=== PATIENT | female | born 1970 | race Caucasian/White ===

== ENCOUNTER 2022-04-19 09:52 | Emergency (ER) | payer BC ==
[2022-04-19 10:09] VITALS: O2SAT 97
[2022-04-19] MEDS ORDERED: BACTRIM DS TABLET PO STA (10:36)
--- NOTE | 2022-04-19 10:47 | ERPHSYRPT ---
- History of Present Illness Time Seen by Provider: 04/19/22 10:17 Source: patient Exam Limitations: no limitations Patient Subjective Stated Complaint: pt here for pain to right foot, she states on sat. she tripped over a stump and struck her right foot on another stump. Triage Nursing Assessment: pt alert, walked in with a limp, resp easy, face mask in place, skin w/d/p, has swelling, bruising and redness to right great toe, with part of toenail missing, and co pain to top of foot Physician History: 51 years old healthy female presented in the ER after she tripped on wet surface, hit the stumps on right big toe and distal foot 2 days ago. Her toenail is loose and yesterday's noticed some pus drainage. Diffuse swelling and erythema of the toe and pain with ambulation. Up-to-date with tetanus. Method of Injury: fell Occurred: days ago (2) Quality: sharpness Severity of Pain-Max: moderate Severity of Pain-Current: moderate Lower Extremities Pain: foot: right, 1st toe: right Modifying Factors: Improves With: immobilization. Worsens With: movement Associated Symptoms: none Allergies/Adverse Reactions: No Known Drug Allergies Allergy (Unverified 04/19/22 10:02) Hx Tetanus, Diphtheria Vaccination/Date Given: No Hx Influenza Vaccination/Date Given: No Hx Pneumococcal Vaccination/Date Given: No Immunizations Up to Date: Yes Travel Risk - International Travel Have you traveled outside of the country in past 3 weeks: No - Coronavirus Screening Are you exhibiting any of the following symptoms?: No Close contact with a COVID-19 positive Pt in past 14-21 Days: No - Vaccine Status Have you recieved a Covid-19 vaccination: Yes Voice Engineer: Unknown - Vaccination Dates Date of 2cond Vaccination (if applicable): 2020 Dates if Unknown: ? - Review of Systems Constitutional: No Symptoms Eyes: No Symptoms Respiratory: No Symptoms Cardiac: No Symptoms Abdominal/Gastrointestinal: No Symptoms Genitourinary Symptoms: No Symptoms Musculoskeletal: Injury Skin: Skin Lesions Neurological: No Symptoms Hematologic/Lymphatic: No Symptoms Immunological/Allergic: No Symptoms - Past Medical History Pertinent Past Medical History: No - Past Surgical History Past Surgical History: No - Social History Smoking Status: Never smoker Exposure to second hand smoke: No Drug Use: none - Nursing Vital Signs Nursing Vital Signs: Initial Vital Signs Temperature 96.8 F 09/05/22 10:04 Pulse Rate 93 H 04/19/22 10:04 Respiratory Rate 18 04/19/22 10:04 Blood Pressure 122/76 04/19/22 10:04 O2 Sat by Pulse Oximetry 97 04/19/22 10:04 Pain Scale Pain Intensity 6 - Physical Exam General Appearance: no apparent distress, alert Eyes, Ears, Nose, Throat Exam: normal ENT inspection Neck Exam: normal inspection, supple, full range of motion Cardiovascular/Respiratory Exam: normal breath sounds, regular rate/rhythm Back Exam: normal inspection, normal range of motion Foot Exam: right foot: bone tenderness (Big toe and first metatarsal tarsal distally), infection, limited range of motion (Big toe), nail injury (Big toenail), pain, soft tissue tenderness (Diffuse erythema of big toe), swelling, left foot: non-tender, normal inspection, normal range of motion, no evidence of injury Neuro/Tendon Exam: normal sensation, normal motor functions Mental Status Exam: alert, oriented x 3, cooperative Skin Exam: normal color SpO2 Interpretation: normal SpO2: 97 O2 Delivery: Room Air Ordered Tests: Active Orders 24 hr Category Date Time Status FOOT (MINIMUM 3 VIEWS) Stat Exams 04/19/22 10:14 Taken Medication Summary Discontinued Medications Generic Name Dose Route Start Last Admin Trade Name Liana PRN Reason Stop Dose Admin Trimethoprim/Sulfamethoxazole 1 tab 04/19/22 10:36 Smz/Tmp Ds Tablet 1 Tablet PO 04/19/22 10:37 STAT STA - Progress Progress: unchanged Progress Note: 04/19/22 10:46 She is offered pain medication which she refused. X-rays reviewed by me did not reveal any obvious fracture dislocation, official report of pelvic. Started on Bactrim and ibuprofen. Outpatient podiatry follow-up recommended. Counseled pt/family regarding: diagnosis, need for follow-up, rad results - Departure Departure Disposition: Home Clinical Impression: Toe infection, Foot injury Condition: Stable Critical Care Time: No Referrals: MAYA CHRISTIAN MD [Primary Care Provider] - Follow Up with PCP/3 days TANA HULL DPM [ACTIVE STAFF] - Follow up/PCP as directed (Tomorrow for reevaluation) Instructions: Toe Injury (DC) Additional Instructions: Take Tylenol/ibuprofen as needed for pain. Keep it elevated, intermittent ice application. Follow-up with podiatry and primary care for reevaluation. Return to ER for increasing pain swelling redness, fever chills etc. Prescriptions: Ibuprofen 600 mg PO Q6HPRN PRN 10 Days #20 tablet PRN Reason: Pain Smz/Tmp Ds Tablet [Bactrim Ds Tablet] 1 udtab PO BID #14 tablet
[2022-04-19] MEDS ORDERED: BACTRIM DS TABLET PO ONE (10:51)
[2022-04-19 11:12] VITALS: BP 107/80; PULSE 70
--- NOTE | 2022-04-19 18:38 | XRAY ---
Indication: Pain following fall 2 days ago. Comparison: None 3 nonweightbearing views right foot demonstrates tiny plantar heel spur. No other bony, articular, or soft tissue abnormalities.
== END 2022-04-19 11:11 | disposition home or self-care (01) ==
LOC: ED 09:52
DX: L08.9 Local infection of the skin and subcutaneous tissue, unspecified (principal); S99.921A Unspecified injury of right foot, initial encounter; W22.8XXA Striking against or struck by other objects, initial encounter; M79.671 Pain in right foot
CPT/HCPCS: 73630; 99282; A9270-GY

== ENCOUNTER 2025-04-28 05:57 | Emergency (ER) | payer BC ==
[2025-04-28 06:15] VITALS: TEMP 97.7
[2025-04-28] MEDS ORDERED: NORCO 5/325 MG ONE (06:22)
[2025-04-28] MEDS ORDERED: Cyclobenzaprine 10 MG ONE (06:22)
[2025-04-28] MEDS: Cyclobenzaprine 10 MG PO ONE (06:23)
[2025-04-28] MEDS: NORCO 5/325 MG PO ONE (06:24)
--- NOTE | 2025-04-28 06:24 | ERPHSYRPT ---
- History of Present Illness Time Seen by Provider: 04/28/25 06:17 Source: patient Exam Limitations: no limitations Patient Subjective Stated Complaint: pt reports bilateral upper leg pain beginning Tuesday, pt denies injury but states after she bent over the pain started. pt reports she used some muscle cream and a pain pill and the pain improved. states tuesday morning she woke up and went about her day per normal until the afternoon when the pain started again. reports she tried to go to bed but has tossed and turned all night and can no longer tolerate the pain. Triage Nursing Assessment: pt is aox3, crying intermittently upon exam, afe brile, resps easy and non labored, cap refill < 3 seconds, radial pulses strong and equal, pt skin pink warm dry. no obvious injury or deformity noted. no edema appreciated, pt ROM and sensation intact. pt is ambulatory with no difficulty. Physician History: 54-year-old female presents to the emergency room with bilateral buttocks pain that radiates to her bilateral thighs patient reports the pain started when she bent over and was squatting denies any popping sensation denies any trauma or falls patient is able to ambulate patient reports she has been using Aspercreme rub for pain relief as well as ibuprofen denies any bowel or bladder incontinence Timing/Duration: yesterday Method of Injury: bending Back Pain Location: paraspinous muscles Back Pain Radiation: buttocks, upper legs Severity of Pain-Max: mild Severity of Pain-Current: mild Associated Symptoms: No urinary incontinence, No loss of bowel control, No constipation, No nausea, No vomiting Allergies/Adverse Reactions: No Known Drug Allergies Allergy (Verified 04/28/25 06:14) Home Medications: Amoxicillin 500 mg PO BID 04/28/25 [History] Benzonatate 200 mg PO TIDPRN 04/28/25 [History] Cetirizine HCl [All Day Allergy Relief] 10 mg PO DAILY 04/28/25 [History] Prednisone 20 mg [Deltasone 20 mg] 20 mg PO DAILY 04/28/25 [History] Hx Tetanus, Diphtheria Vaccination/Date Given: No Hx Influenza Vaccination/Date Given: No Hx Pneumococcal Vaccination/Date Given: No Immunizations Up to Date: No Travel Risk - International Travel Have you traveled outside of the country in past 3 weeks: No - Emerging Infectious Disease Are you exhibiting symptoms associated with any current EIDs: No - Review of Systems Constitutional: No Fever, No Chills Eyes: No Symptoms Ears, Nose, & Throat: No Symptoms Respiratory: No Cough, No Dyspnea Cardiac: No Chest Pain, No Edema, No Syncope Abdominal/Gastrointestinal: No Abdominal Pain, No Nausea, No Vomiting, No Diarrhea Genitourinary Symptoms: No Dysuria Musculoskeletal: Other (leg pain), No Back Pain, No Neck Pain Skin: No Rash Neurological: No Dizziness, No Focal Weakness, No Sensory Changes Psychological: No Symptoms Endocrine: No Symptoms All Other Systems: Reviewed and Negative - Past Medical History Pertinent Past Medical History: No - Past Surgical History Past Surgical History: No - Social History Smoking Status: Never smoker Exposure to second hand smoke: No Drug Use: none - Social Determinants of Health Will the patient participate in the screening: Yes Do you worry about a steady place to live?: No Do you have any problems with any of the following?: No known problems In the past 12 months,have you had to go without utilities?: No Transportation Issues: No Has anyone in your support network made you feel unsafe?: No Have you or anyone in your house had to go w/o enough food: No - Nursing Vital Signs Nursing Vital Signs: Initial Vital Signs Temperature 97.7 F 04/28/25 06:03 Pulse Rate 96 H 04/28/25 06:03 Respiratory Rate 20 04/28/25 06:03 Blood Pressure 129/106 04/28/25 06:03 O2 Sat by Pulse Oximetry 99 04/28/25 06:03 Pain Scale Pain Intensity 10 - Physical Exam General Appearance: no apparent distress, alert Eye Exam: PERRL/EOMI, eyes nml inspection Neck Exam: normal inspection, non-tender, supple, full range of motion, No meningismus, No midline tenderness Respiratory Exam: normal breath sounds, lungs clear, No respiratory distress Cardiovascular Exam: regular rate/rhythm, normal heart sounds Gastrointestinal Exam: soft, No tenderness, No mass Extremity Exam: normal inspection, normal range of motion, other (muscle spasms), No calf tenderness, No pedal edema Neurologic Exam: alert, oriented x 3, cooperative, platemaker II-XII nml as tested, normal mood/affect, nml station & gait, sensation nml, No motor deficits Skin Exam: normal color, warm, dry, No rash SpO2: 99 Ordered Tests: Medication Summary Discontinued Medications Generic Name Dose Route Start Last Admin Trade Name Liana PRN Reason Stop Dose Admin Hydrocodone Bitart/Acetaminophen 1 tab 04/28/25 06:18 Hydrocodone/Apap 5/325 1 Tab Tablet PO 04/28/25 06:19 STAT ONE Hydrocodone Bitart/Acetaminophen Confirm 04/28/25 06:22 Hydrocodone/Apap 5/325 1 Tab Tablet Administered 04/28/25 06:23 Dose 1 tab .ROUTE .STK-MED ONE Cyclobenzaprine HCl 10 mg 04/28/25 06:18 04/28/25 06:23 Cyclobenzaprine Hcl 10 Mg Tablet PO 04/28/25 06:19 10 mg STAT ONE Administration Cyclobenzaprine HCl Confirm 04/28/25 06:22 Cyclobenzaprine Hcl 10 Mg Tablet Administered 04/28/25 06:23 Dose 10 mg .ROUTE .STK-MED ONE - Departure Departure Disposition: Home Clinical Impression: Leg muscle spasm Condition: Stable Critical Care Time: No Referrals: MAYA CHRISTIAN MD [Primary Care Provider, [facility]] - Follow up/PCP as directed Instructions: Muscle spasm - ED discharge instructions, Muscle spasms (muscle cramps), Exercises for sciatic pain Prescriptions: Hydrocodone/Acetaminophen [Hydrocodone-Acetamin 5-325 mg] 1 tab PO Q8HPRN PRN #6 tablet MDD 6 PRN Reason: Pain Cyclobenzaprine HCl 10 mg [Cyclobenzaprine 10 MG] 10 mg PO HS PRN 7 Days #7 tablet PRN Reason: Muscle Spasms
[2025-04-28 06:46] VITALS: BP 125/70; PULSE 80; RESP 15; O2SAT 98
== END 2025-04-28 06:46 | disposition home or self-care (01) ==
LOC: ED 05:57
DX: M62.838 Other muscle spasm (principal); M79.604 Pain in right leg; M79.605 Pain in left leg; Z79.52 Long term (current) use of systemic steroids; Z79.891 Long term (current) use of opiate analgesic; Z79.899 Other long term (current) drug therapy

== ENCOUNTER 2025-05-14 09:54 | Emergency (ER) | payer BC | END 2025-05-14 10:40 | disposition left against medical advice (07) | LOC: ED 09:54 | DX: Z53.21 Procedure and treatment not carried out due to patient leaving prior to being seen by health care provider (principal) ==